=== PATIENT | female | born 1955 | race Caucasian/White ===

== ENCOUNTER 2017-08-23 07:30 | Inpatient (IN) ==
[2017-08-30] MEDS ORDERED: DEXTROSE 50% 25 GM/50 ML VIAL IV PRN ×2 (06:20→06:22)
[2017-08-30] MEDS ORDERED: GLUCAGON 1 MG VIAL IM PRN ×2 (06:20→06:22)
[2017-08-30] MEDS ORDERED: CEFUROXIME INJ 1,500 MG in SODIUM CHLORIDE 0.9% 100 ML IV ONE (06:20)
[2017-08-30] MEDS ORDERED: ZOLPIDEM 5 MG TABLET PO PRN (06:28)
[2017-08-30] MEDS ORDERED: oxyCODONE/ACETAMINOPHEN 5-325 MG TABLET PO PRN (06:29)
[2017-08-30] MEDS ORDERED: SODIUM CHLORIDE 0.9% 1,000 ML IV SCH ×2 (06:30)
[2017-08-30] MEDS ORDERED: CHLORHEXIDINE 4% SOLN 118 ML BOTTLE TOP SCH (09:00)
[2017-08-30] MEDS ORDERED: CHLORHEXIDINE 0.12% ORAL RINSE 60 ML BOTTLE SWISH/SPIT SCH (09:00)
[2017-08-30 11:08] LABS: Basophils % 0.7 % (0.0-0.8); Eosinophils # 0.2 10*3/uL (0.0-0.87); Eosinophils % 2.5 % (0.00-10.9); Hematocrit 35.9 VOL% (35.7-47.0); Hemoglobin 11.9 GM/DL (12.0-16.0); Immature Granulocytes % 0.3 %; Immature Granulocytes Absolute 0.02 #; Lymphocytes # 1.5 10*3/uL (1.4-4.0); Lymphocytes % 25.3 % (21.3-54.2); Mean Corpuscular HGB Conc 33.1 GM/DL (32-36); Mean Corpuscular Hemoglobin 29 PG (27-34); Mean Corpuscular Volume 87.3 FL (87-102); Mean Platelet Volume 10.1 FL (9.6-12.0); Monocytes # 0.6 10*3/uL (0.11-0.8); Monocytes % 9.2 % (1.7-12.7); Neutrophils # 3.8 10*3/uL (1.4-7.4); Platelet Count 198 T/CUMM (130-400); Red Blood Count 4.11 MC/CUMM (3.8-5.5); Red Cell Distribution Width 14.5 % (9.3-17.3); White Blood Count 6.1 T/CUMM (4-12)
[2017-08-30 11:30] LABS: Alanine Aminotransferase 23 U/L (13-56); Alkaline Phosphatase 49 U/L (45-117); Aspartate Amino Transferase 29 U/L (0-37); Bilirubin,Total < 0.39 MG/DL (0.2-1.0); Blood Urea Nitrogen 40 MG/DL (7-18); Calcium 9.2 MG/DL (8.5-10.1); Glucose 132 MG/DL (74-106); Osmolality,Calculated 288.5 MOS/KG (273-304); Sodium 139 MMOL/L (136-145); Total Protein 7.3 G/DL (6.4-8.3)
[2017-08-30] MEDS: LOSARTAN 50 MG TABLET PO SCH (12:38)
[2017-08-30] MEDS: METOPROLOL TARTRATE 50 MG TABLET PO SCH (12:38)
[2017-08-30] MEDS: CHLORHEXIDINE 0.12% ORAL RINSE 60 ML BOTTLE SWISH/SPIT SCH ×2 (12:38→22:06)
[2017-08-30] MEDS: CHLORHEXIDINE 4% SOLN 118 ML BOTTLE TOP SCH ×3 (12:38→21:04)
[2017-08-30] MEDS: LEVOTHYROXINE 150 MCG TABLET PO SCH (12:38)
[2017-08-31] MEDS ORDERED: VANCOMYCIN 1,000 MG VIAL ONE (05:26)
[2017-08-31] MEDS ORDERED: CEFUROXIME INJ 1,500 MG in SYRINGE 1 EACH IV ONE (06:00)
[2017-08-31] MEDS: LEVOTHYROXINE 150 MCG TABLET PO SCH (06:03)
[2017-08-31] MEDS: CHLORHEXIDINE 4% SOLN 118 ML BOTTLE TOP SCH (06:05)
[2017-08-31] MEDS ORDERED: FAMOTIDINE 20 MG TABLET PO ONE (06:30)
[2017-08-31] MEDS ORDERED: DIAZEPAM 5 MG TABLET PO ONE (06:30)
[2017-08-31 07:48] LABS: ABG Base Excess 4.3 MMOL/L (-2.5-2.5); ABG HCO3 28.3 MMOL/L (20-26); ABG PCO2 38.4 MM HG (35-48); ABG PH 7.472 (7.35-7.45); ABG TCO2 25.1 MMOL/L (23-27); Glucose Heart Surgery 157 MG/DL (74-106); Hematocrit Heart Surgery 33.4 PERCENT (37-47); Hemoglobin Heart Surgery 10.8 G/DL (12.0-16.0); Ionized Calcium Arterial 1.14 MMOL/L (1.21-1.46); PCO2 Patient Temp Arterial 38.4 MMHG; PH Patient Temp Arterial 7.472; Patient Temperature 37 CELCIUS; Potassium Heart/CVR 2.6 MMOL/L (3.5-5.1); Sodium Heart/CVR 143 MMOL/L (135-145)
[2017-08-31 08:27] LABS: Apearance,Urine CLEAR (Clear); Bilirubin,Urine Negative (Negative); Blood, Urine Negative (Negative); Glucose,Urine (UA) Negative (Negative); Hyaline Casts,Urine 4 /LPF (0-3); Ketones,Urine Negative (Negative); Nitrite,Urine Negative (Negative); Protein,Urine Negative; RBC,Urine <1 /HPF (0-4); Squamous Epithelial Cell,Urine Occasional /HPF (0-10); Urine Color Yellow (Yellow); Urine Specific Gravity 1.015 (1.001-1.035); Urine Urobilinogen < 2.0 EU/DL (0.2-1.0); WBC,Urine <1 /HPF (0-6)
[2017-08-31 09:17] LABS: Hemoglobin Heart Surgery 7.5 G/DL (12.0-16.0); PCO2 Patient Temp Venous 40.3 MM HG; PH Patient Temp Venous 7.466; PO2 Patient Temp Venous 41.7 MM HG; VBG Base Excess 4.3 MEQ/L (0-4); VBG HCO3 28.4 MEQ/L (24-28); VBG Oxygen Saturation 73.7 %; VBG PCO2 40.3 MMHG (41-51); VBG PH 7.466; VBG PO2 41.7 MMHG (17-40)
[2017-08-31] MEDS ORDERED: PHENYLEPHRINE DRIP 40 MG/250 ML PREMIX IV ONE (09:17)
[2017-08-31] MEDS ORDERED: NITROPRUSSIDE 50 MG/2 ML VIAL ONE (09:17)
[2017-08-31] MEDS ORDERED: CALCIUM CHLORIDE 1,000 MG/10 ML SYRINGE IV ONE (09:18)
[2017-08-31] MEDS ORDERED: POTASSIUM CHLORIDE RIDER 100 ML IV ONE (09:18)
[2017-08-31] MEDS ORDERED: ALBUMIN 5% 12.5 GM/250 ML VIAL IV ONE (09:19)
[2017-08-31] MEDS ORDERED: MIDAZOLAM 10 MG/2 ML VIAL ONE (09:30)
[2017-08-31] MEDS ORDERED: SODIUM CHLORIDE 0.9% 2,000 ML IV ONE (09:30)
[2017-08-31] MEDS ORDERED: ETOMIDATE 40 MG/20 ML VIAL IV ONE (09:30)
[2017-08-31] MEDS ORDERED: SODIUM CHLORIDE 0.9% 500 ML IV ONE (09:30)
[2017-08-31] MEDS ORDERED: LACTATED RINGERS 1,000 ML IV ONE (09:30)
[2017-08-31] MEDS ORDERED: HEPARIN/NACL 0.9% 2 UNITS/ML 500 ML IV ONE (09:32)
[2017-08-31] MEDS ORDERED: CALCIUM CHLORIDE 1,000 MG/10 ML VIAL IV ONE (09:32)
[2017-08-31] MEDS ORDERED: PHENYLEPHRINE 10 MG/1 ML VIAL IV ONE ×3 (09:33→11:38)
[2017-08-31] MEDS ORDERED: SUFentanil 250 MCG/5 ML AMP ONE (09:33)
[2017-08-31] MEDS ORDERED: MINERAL OIL/PETROLATUM OPH OINT 3.5 GM TUBE ONE (09:33)
[2017-08-31] MEDS ORDERED: TRANEXAMIC ACID 1,000 MG/10 ML VIAL IV ONE (09:33)
[2017-08-31] MEDS ORDERED: ePHEDrine 50 MG/ML AMP ONE (09:33)
[2017-08-31] MEDS ORDERED: NITROGLYCERIN DRIP 50 MG/250 ML BOTTLE IV ONE (09:34)
[2017-08-31] MEDS ORDERED: ROCURONIUM 100 MG/10 ML VIAL IV ONE (09:34)
[2017-08-31 09:39] LABS: Hematocrit Heart Surgery 23.3 PERCENT (37-47); Hemoglobin Heart Surgery 7.5 G/DL (12.0-16.0); PCO2 Patient Temp Venous 36.9 MM HG; PH Patient Temp Venous 7.49; PO2 Patient Temp Venous 33.4 MM HG; Potassium Heart/CVR 2.8 MMOL/L (3.5-5.1); VBG Base Excess 4.8 MEQ/L (0-4); VBG HCO3 28.5 MEQ/L (24-28); VBG Oxygen Saturation 75.9 %; VBG PCO2 42.7 MMHG (41-51); VBG PH 7.445; VBG PO2 41.1 MMHG (17-40)
[2017-08-31 10:12] LABS: Hemoglobin Heart Surgery 8.4 G/DL (12.0-16.0); PCO2 Patient Temp Venous 36.2 MM HG; PH Patient Temp Venous 7.508; PO2 Patient Temp Venous 37.7 MM HG; Potassium Heart/CVR 2.8 MMOL/L (3.5-5.1); VBG Base Excess 4.8 MEQ/L (0-4); VBG HCO3 28.1 MEQ/L (24-28); VBG PCO2 36.2 MMHG (41-51); VBG PH 7.508; VBG PO2 37.7 MMHG (17-40)
[2017-08-31] MEDS ORDERED: HEPARIN 10,000 UNIT/10 ML VIAL ONE (10:36)
[2017-08-31] MEDS ORDERED: methylPREDNISolone SOD SUC 1,000 MG/8 ML VIAL ONE (10:36)
[2017-08-31] MEDS ORDERED: PROTAMINE SULFATE 250 MG/25 ML VIAL IV ONE (10:36)
[2017-08-31] MEDS ORDERED: DEXTROSE 5% KCL 20 MEQ 20 MEQ/1,000 ML BAG IV ONE (10:36)
[2017-08-31] MEDS ORDERED: ALBUMIN 25% 25 GM/100 ML VIAL IV ONE (10:36)
[2017-08-31] MEDS ORDERED: SODIUM BICARBONATE 50 MEQ/50 ML SYRINGE IV ONE (10:36)
[2017-08-31] MEDS ORDERED: MAGNESIUM SULFATE 1 GM/2 ML VIAL ONE (10:36)
[2017-08-31] MEDS ORDERED: FUROSEMIDE 20 MG/2 ML VIAL ONE (10:37)
[2017-08-31] MEDS ORDERED: POTASSIUM CHLORIDE 20 MEQ/10 ML VIAL ONE (10:37)
[2017-08-31] MEDS ORDERED: MANNITOL 12.5 GM/50 ML VIAL IV ONE (10:37)
[2017-08-31] MEDS ORDERED: PROTAMINE SULFATE 50 MG/5 ML VIAL IV ONE ×3 (10:37→12:45)
[2017-08-31 10:47] LABS: ABG Base Excess 2.2 MMOL/L (-2.5-2.5); ABG HCO3 26.4 MMOL/L (20-26); ABG Oxygen Saturation 99.1 % (95-100); ABG PCO2 42.1 MM HG (35-48); ABG PH 7.414 (7.35-7.45); Glucose Heart Surgery 246 MG/DL (74-106); Hematocrit Heart Surgery 26.1 PERCENT (37-47); Hemoglobin Heart Surgery 8.4 G/DL (12.0-16.0); Ionized Calcium Arterial 1.32 MMOL/L (1.21-1.46); PCO2 Patient Temp Arterial 42.1 MMHG; PH Patient Temp Arterial 7.414; Patient Temperature 37 CELCIUS; Potassium Heart/CVR 3.1 MMOL/L (3.5-5.1); Sodium Heart/CVR 141 MMOL/L (135-145)
[2017-08-31] MEDS ORDERED: MIDAZOLAM 2 MG/2 ML VIAL IV PRN (11:37)
[2017-08-31] MEDS ORDERED: INSULIN REGULAR 100 UNIT/ML IV ONE (11:37)
[2017-08-31] MEDS ORDERED: ONDANSETRON 4 MG/2 ML VIAL IV PRN (11:37)
[2017-08-31] MEDS ORDERED: LACTATED RINGERS 250 ML IV PRN (11:37)
[2017-08-31] MEDS ORDERED: MORPHINE 10 MG/1 ML VIAL IV PRN (11:37)
[2017-08-31] MEDS ORDERED: POTASSIUM CHLORIDE RIDER 10 MEQ in PREMIX 1 EACH IV PRN (11:37)
[2017-08-31] MEDS ORDERED: DEXTROSE 50% 25 GM/50 ML VIAL IV PRN ×2 (11:37)
[2017-08-31] MEDS ORDERED: INSULIN REGULAR 100 UNIT/ML IV PRN (11:37)
[2017-08-31] MEDS ORDERED: CALCIUM CHLORIDE 1,000 MG/10 ML SYRINGE IV PRN (11:37)
[2017-08-31] MEDS ORDERED: ACETAMINOPHEN 650 MG SUPP RECTAL PRN (11:37)
[2017-08-31] MEDS ORDERED: PHENYLEPHRINE DRIP 40 MG/250 ML PREMIX IV PRN (11:37)
[2017-08-31] MEDS ORDERED: DEXAMETHASONE 10 MG/1 ML VIAL ONE (11:37)
[2017-08-31] MEDS ORDERED: MIDAZOLAM 10 MG/2 ML VIAL IV PRN (11:37)
[2017-08-31] MEDS ORDERED: VECURONIUM 10 MG VIAL IV PRN ×2 (11:37)
[2017-08-31] MEDS ORDERED: MAGNESIUM SULF RIDER 4 GM in PREMIX 1 EACH IV PRN (11:37)
[2017-08-31] MEDS ORDERED: MAGNESIUM SULF RIDER 2 GM in PREMIX 1 EACH IV PRN (11:37)
[2017-08-31] MEDS ORDERED: NITROPRUSSIDE 100 MG in DEXTROSE 5% 250 ML IV PRN (11:37)
[2017-08-31] MEDS ORDERED: ONDANSETRON 4 MG/2 ML VIAL ONE (11:37)
[2017-08-31] MEDS ORDERED: ESMOLOL 100 MG/10 ML VIAL IV ONE (11:38)
[2017-08-31] MEDS ORDERED: SEVOFLURANE 1 UNIT/15 MINUTE INH ONE (11:41)
[2017-08-31 11:44] LABS: ABG Base Excess 0.8 MMOL/L (-2.5-2.5); ABG HCO3 25.1 MMOL/L (20-26); ABG Oxygen Saturation 99.7 % (95-100); ABG PCO2 46.1 MM HG (35-48); ABG PH 7.366 (7.35-7.45); ABG TCO2 24.5 MMOL/L (23-27); Glucose Heart Surgery 194 MG/DL (74-106); Hematocrit Heart Surgery 26.8 PERCENT (37-47); Hemoglobin Heart Surgery 8.6 G/DL (12.0-16.0)
[2017-08-31 11:44] LABS: Basophils % 0.2 % (0.0-0.8); Eosinophils % 0.5 % (0.00-10.9); Hematocrit 26.3 VOL% (35.7-47.0); Immature Granulocytes % 0.5 %; Immature Granulocytes Absolute 0.03 #; Lymphocytes # 0.7 10*3/uL (1.4-4.0); Lymphocytes % 10.8 % (21.3-54.2); Mean Corpuscular HGB Conc 32.3 GM/DL (32-36); Mean Corpuscular Hemoglobin 28 PG (27-34); Mean Corpuscular Volume 87.4 FL (87-102); Mean Platelet Volume 10.5 FL (9.6-12.0); Monocytes # 0.2 10*3/uL (0.11-0.8); Monocytes % 3.2 % (1.7-12.7); Neutrophils # 5.6 10*3/uL (1.4-7.4); Neutrophils % 84.8 % (38.7-73.9); Red Cell Distribution Width 14.5 % (9.3-17.3); White Blood Count 6.6 T/CUMM (4-12)
[2017-08-31 11:51] LABS: Hemoglobin 8.5 GM/DL (12.0-16.0); Platelet Count 171 T/CUMM (130-400); Red Blood Count 3.01 MC/CUMM (3.8-5.5)
[2017-08-31 11:56] LABS: INR 1.2; PT Patient Result 12.2 SECS
[2017-08-31] MEDS ORDERED: SODIUM CHLORIDE 0.45% 1,000 ML IV SCH ×2 (12:00)
[2017-08-31] MEDS: LACTATED RINGERS 1,000 ML IV PRN ×2 (12:00→13:02)
[2017-08-31] MEDS ORDERED: KETOROLAC 30 MG/1 ML VIAL IV SCH (12:00)
[2017-08-31 12:21] LABS: Albumin 3.3 G/DL (3.4-5.0); Bilirubin,Total 0.5 MG/DL (0.2-1.0); Calcium 9.6 MG/DL (8.5-10.1); Osmolality,Calculated 293.3 MOS/KG (273-304); Potassium 3.8 MMOL/L (3.5-5.1); Total Protein 5.5 G/DL (6.4-8.3)
[2017-08-31 12:36] LABS: CKMB % 3.6 %
[2017-08-31 12:40] LABS: Troponin I Only 1.59 NG/ML (0.00-0.045)
[2017-08-31] MEDS: ALBUMIN 5% 12.5 GM in PREMIX 1 EACH IV PRN ×2 (12:56→15:15)
[2017-08-31] MEDS: POTASSIUM CHLORIDE RIDER 20 MEQ in PREMIX 1 EACH IV PRN ×4 (14:17→22:37)
[2017-08-31 14:25] LABS: ABG Base Excess 0.4 MMOL/L (-2.5-2.5); ABG HCO3 24.8 MMOL/L (20-26); ABG Oxygen Saturation 97.9 % (95-100); ABG PCO2 54.2 MM HG (35-48); ABG PH 7.313 (7.35-7.45); Glucose Heart Surgery 206 MG/DL (74-106); Hematocrit Heart Surgery 33.1 PERCENT (37-47); Hemoglobin Heart Surgery 10.7 G/DL (12.0-16.0); Potassium Heart/CVR 3.2 MMOL/L (3.5-5.1)
[2017-08-31] MEDS: INSULIN REGULAR DRIP 100 ML IV SCH (14:41)
[2017-08-31] MEDS ORDERED: PROPOFOL 200 MG/20 ML VIAL IV ONE (14:52)
[2017-08-31] MEDS ORDERED: PROPOFOL 1,000 MG/100 ML BOTTLE IV ONE (15:20)
[2017-08-31] MEDS ORDERED: PROPOFOL 1,000 MG/100 ML BOTTLE IV SCH (15:30)
[2017-08-31 16:27] LABS: ABG Base Excess 0.6 MMOL/L (-2.5-2.5); ABG Oxygen Saturation 99.2 % (95-100); ABG PCO2 44.4 MM HG (35-48); ABG PH 7.375 (7.35-7.45); ABG TCO2 23.7 MMOL/L (23-27); Glucose Heart Surgery 211 MG/DL (74-106); Hematocrit Heart Surgery 31.2 PERCENT (37-47); Hemoglobin Heart Surgery 10.1 G/DL (12.0-16.0); Potassium Heart/CVR 3.5 MMOL/L (3.5-5.1)
[2017-08-31 16:53] LABS: CKMB % 3.2 %
[2017-08-31 16:55] LABS: Troponin I Only 1.99 NG/ML (0.00-0.045)
[2017-08-31] MEDS: LOSARTAN 50 MG TABLET PO SCH (17:42)
[2017-08-31] MEDS: CHLORHEXIDINE 0.12% ORAL RINSE 60 ML BOTTLE SWISH/SPIT SCH (17:43)
[2017-08-31] MEDS: METOPROLOL TARTRATE 50 MG TABLET PO SCH (17:43)
[2017-08-31 19:28] LABS: ABG Base Excess 0.4 MMOL/L (-2.5-2.5); ABG HCO3 24.8 MMOL/L (20-26); ABG PCO2 43.4 MM HG (35-48); ABG TCO2 23.4 MMOL/L (23-27); Glucose Heart Surgery 199 MG/DL (74-106); Hematocrit Heart Surgery 30.2 PERCENT (37-47); Hemoglobin Heart Surgery 9.8 G/DL (12.0-16.0); Potassium Heart/CVR 3.8 MMOL/L (3.5-5.1)
[2017-08-31] MEDS: ALPRAZolam 0.5 MG TABLET PO SCH (19:44)
[2017-08-31] MEDS: CEFUROXIME INJ 1,500 MG in SYRINGE 1 EACH IV SCH (19:44)
[2017-08-31 19:59] LABS: ABG Base Excess 0.4 MMOL/L (-2.5-2.5); ABG HCO3 26.1 MMOL/L (20-26); ABG Oxygen Saturation 97.5 % (95-100); ABG PCO2 47.2 MM HG (35-48); ABG PH 7.361 (7.35-7.45); ABG PO2 120.4 MM HG (80-95); ABG TCO2 27.6 MMOL/L (23-27); Glucose Heart Surgery 188 MG/DL (74-106); Hemoglobin Heart Surgery 10.2 G/DL (12.0-16.0); Potassium Heart/CVR 3.9 MMOL/L (3.5-5.1)
[2017-08-31 20:57] LABS: ABG HCO3 24.4 MMOL/L (20-26); ABG Oxygen Saturation 97.8 % (95-100); ABG PH 7.325 (7.35-7.45); ABG TCO2 24.3 MMOL/L (23-27); Glucose Heart Surgery 195 MG/DL (74-106)
[2017-08-31] MEDS ORDERED: CHLORHEXIDINE 0.12% ORAL RINSE 60 ML BOTTLE SWISH/SPIT SCH (21:00)
[2017-08-31] MEDS: MORPHINE 2 MG/1 ML SYRINGE IV PRN (21:28)
[2017-08-31 21:38] LABS: ABG Base Excess 0.1 MMOL/L (-2.5-2.5); ABG HCO3 24.4 MMOL/L (20-26); ABG Oxygen Saturation 93.7 % (95-100); ABG PCO2 55.5 MM HG (35-48); ABG PO2 74.5 MM HG (80-95); ABG TCO2 25.2 MMOL/L (23-27); Glucose Heart Surgery 188 MG/DL (74-106); Potassium Heart/CVR 3.8 MMOL/L (3.5-5.1)
[2017-08-31 22:30] LABS: ABG Base Excess 1.1 MMOL/L (-2.5-2.5); ABG HCO3 27.7 MMOL/L (20-26); ABG Oxygen Saturation 92.4 % (95-100); ABG PCO2 53.6 MM HG (35-48); ABG PH 7.331 (7.35-7.45); ABG PO2 73.6 MM HG (80-95); ABG TCO2 29.3 MMOL/L (23-27); Glucose Heart Surgery 177 MG/DL (74-106); Hemoglobin Heart Surgery 10.3 G/DL (12.0-16.0); Potassium Heart/CVR 3.5 MMOL/L (3.5-5.1)
[2017-09-01] MEDS: ALPRAZolam 0.5 MG TABLET PO SCH (01:09)
[2017-09-01] MEDS: MORPHINE 2 MG/1 ML SYRINGE IV PRN ×4 (01:10→13:34)
[2017-09-01] MEDS ORDERED: FUROSEMIDE 40 MG/4 ML VIAL IV ONE (02:30)
[2017-09-01 03:10] LABS: ABG Base Excess 2.1 MMOL/L (-2.5-2.5); ABG HCO3 26.2 MMOL/L (20-26); ABG PCO2 52.7 MM HG (35-48); ABG PH 7.343 (7.35-7.45); ABG PO2 75.4 MM HG (80-95); ABG TCO2 26.3 MMOL/L (23-27); Glucose Heart Surgery 154 MG/DL (74-106); Hematocrit Heart Surgery 29.6 PERCENT (37-47); Hemoglobin Heart Surgery 9.6 G/DL (12.0-16.0); Potassium Heart/CVR 3.5 MMOL/L (3.5-5.1)
[2017-09-01 03:19] LABS: Basophils % 0.1 % (0.0-0.8); Hematocrit 28.8 VOL% (35.7-47.0); Hemoglobin 9.5 GM/DL (12.0-16.0); Immature Granulocytes % 0.5 %; Immature Granulocytes Absolute 0.05 #; Lymphocytes # 0.4 10*3/uL (1.4-4.0); Lymphocytes % 4.4 % (21.3-54.2); Mean Corpuscular Hemoglobin 29 PG (27-34); Mean Corpuscular Volume 88.1 FL (87-102); Mean Platelet Volume 10.1 FL (9.6-12.0); Monocytes # 0.3 10*3/uL (0.11-0.8); Monocytes % 3.1 % (1.7-12.7); Neutrophils # 8.6 10*3/uL (1.4-7.4); Neutrophils % 91.9 % (38.7-73.9); Platelet Count 132 T/CUMM (130-400); Red Blood Count 3.27 MC/CUMM (3.8-5.5); Red Cell Distribution Width 14.6 % (9.3-17.3); White Blood Count 9.4 T/CUMM (4-12)
[2017-09-01] MEDS: POTASSIUM CHLORIDE RIDER 20 MEQ in PREMIX 1 EACH IV PRN ×2 (03:34→04:20)
[2017-09-01 03:46] LABS: Alanine Aminotransferase 21 U/L (13-56); Albumin 3.6 G/DL (3.4-5.0); Alkaline Phosphatase 29 U/L (45-117); Aspartate Amino Transferase 43 U/L (0-37); Bilirubin,Total < 0.39 MG/DL (0.2-1.0); Blood Urea Nitrogen 29 MG/DL (7-18); Glucose 156 MG/DL (74-106); Potassium 3.7 MMOL/L (3.5-5.1); Sodium 143 MMOL/L (136-145); Total Protein 6.1 G/DL (6.4-8.3)
[2017-09-01 03:47] LABS: CKMB % 2.7 %
[2017-09-01 03:58] LABS: Troponin I Only 1.61 NG/ML (0.00-0.045)
[2017-09-01 04:03] LABS: Lymphocytes 3 % (20-55); Segmented Neutrophils 95 % (50-85); Total Cells Counted 100
[2017-09-01 04:05] LABS: Platelet Estimate Adequate
[2017-09-01 04:06] LABS: Ovalocytes Slight
[2017-09-01] MEDS: INSULIN REGULAR DRIP 100 ML IV SCH (04:40)
[2017-09-01] MEDS: CEFUROXIME INJ 1,500 MG in SYRINGE 1 EACH IV SCH (07:30)
[2017-09-01] MEDS ORDERED: MAGNESIUM SULF RIDER 2 GM in PREMIX 1 EACH IV PRN (07:41)
[2017-09-01] MEDS ORDERED: POTASSIUM CHLORIDE 20 MEQ TABLET PO PRN (07:41)
[2017-09-01] MEDS ORDERED: MAGNESIUM HYDROXIDE SUSP 30 ML UDCUP PO PRN (07:41)
[2017-09-01] MEDS ORDERED: GLUCAGON 1 MG VIAL IM PRN ×2 (07:41)
[2017-09-01] MEDS ORDERED: DEXTROSE 50% 25 GM/50 ML VIAL IV PRN ×2 (07:41)
[2017-09-01] MEDS ORDERED: ALUMINUM/MAGNES/SIMETH MAX STR 30 ML UDCUP PO PRN (07:41)
[2017-09-01] MEDS ORDERED: MAGNESIUM SULF RIDER 4 GM in PREMIX 1 EACH IV PRN (07:41)
[2017-09-01] MEDS ORDERED: ACETAMINOPHEN 325 MG TABLET PO PRN (07:41)
[2017-09-01] MEDS ORDERED: ALPRAZolam 0.5 MG TABLET PO PRN (07:41)
[2017-09-01 08:14] LABS: ABG Base Excess 3.6 MMOL/L (-2.5-2.5); ABG HCO3 27.6 MMOL/L (20-26); ABG Oxygen Saturation 97.1 % (95-100); ABG PCO2 59.3 MM HG (35-48); ABG PH 7.323 (7.35-7.45); ABG PO2 90.6 MM HG (80-95); ABG TCO2 28.6 MMOL/L (23-27); Glucose Heart Surgery 168 MG/DL (74-106); Potassium Heart/CVR 3.7 MMOL/L (3.5-5.1)
[2017-09-01] MEDS: INSULIN REGULAR 100 UNIT/ML SUBCUT SCH ×4 (08:15→22:32)
[2017-09-01] MEDS ORDERED: PANTOPRAZOLE 40 MG TABLET PO SCH (09:00)
[2017-09-01] MEDS ORDERED: ASPIRIN EC 81 MG TABLET PO SCH (09:00)
[2017-09-01] MEDS ORDERED: UBIDECARENONE PO SCH (09:00)
[2017-09-01] MEDS ORDERED: VITAMIN E MIXED PO SCH (09:00)
[2017-09-01] MEDS: SODIUM CHLOR 0.45% KCL 20 MEQ 20 MEQ/1,000 ML BAG IV SCH (09:10)
[2017-09-01] MEDS: FERROUS SULFATE 325 MG TABLET PO SCH (09:20)
[2017-09-01] MEDS: CHLORHEXIDINE 0.12% ORAL RINSE 60 ML BOTTLE SWISH/SPIT SCH ×2 (09:20→21:32)
[2017-09-01] MEDS: METOPROLOL SUCCINATE XL 50 MG TABLET PO SCH ×2 (09:20→21:31)
[2017-09-01] MEDS: metOLazone 2.5 MG TABLET PO SCH (09:20)
[2017-09-01] MEDS: BUMETANIDE 1 MG TABLET PO SCH (09:20)
[2017-09-01] MEDS: LOSARTAN 50 MG TABLET PO SCH (09:20)
[2017-09-01] MEDS: ASPIRIN EC 325 MG TABLET PO SCH (09:20)
[2017-09-01] MEDS: COLCHICINE 0.6 MG TABLET PO SCH (09:20)
[2017-09-01] MEDS: PANTOPRAZOLE 40 MG TABLET PO SCH (09:20)
[2017-09-01] MEDS: CETIRIZINE 10 MG TABLET PO SCH (09:20)
[2017-09-01] MEDS: DOCUSATE SODIUM 100 MG CAPSULE PO SCH (09:20)
[2017-09-01] MEDS: POTASSIUM CHLORIDE 20 MEQ TABLET PO SCH ×2 (09:20→21:31)
[2017-09-01] MEDS: LEVOTHYROXINE 150 MCG TABLET PO SCH (09:20)
[2017-09-01] MEDS: oxyCODONE/ACETAMINOPHEN 5-325 MG TABLET PO PRN (16:59)
[2017-09-02] MEDS: INSULIN REGULAR 100 UNIT/ML SUBCUT SCH ×6 (04:06→20:30)
[2017-09-02] MEDS: oxyCODONE/ACETAMINOPHEN 5-325 MG TABLET PO PRN (05:37)
[2017-09-02] MEDS ORDERED: FUROSEMIDE 40 MG/4 ML VIAL IV ONE (06:00)
[2017-09-02] MEDS: MORPHINE 2 MG/1 ML SYRINGE IV PRN (06:18)
[2017-09-02] MEDS: LEVOTHYROXINE 150 MCG TABLET PO SCH (06:18)
[2017-09-02 08:24] LABS: Basophils % 0.1 % (0.0-0.8); Hematocrit 27.9 VOL% (35.7-47.0); Hemoglobin 8.8 GM/DL (12.0-16.0); Immature Granulocytes % 0.6 %; Immature Granulocytes Absolute 0.09 #; Lymphocytes # 1.8 10*3/uL (1.4-4.0); Lymphocytes % 11.9 % (21.3-54.2); Mean Corpuscular HGB Conc 31.5 GM/DL (32-36); Mean Corpuscular Hemoglobin 29 PG (27-34); Mean Corpuscular Volume 90.6 FL (87-102); Mean Platelet Volume 10.5 FL (9.6-12.0); Monocytes # 1.2 10*3/uL (0.11-0.8); Monocytes % 8.3 % (1.7-12.7); Neutrophils # 11.9 10*3/uL (1.4-7.4); Neutrophils % 79.1 % (38.7-73.9); Platelet Count 173 T/CUMM (130-400); Red Blood Count 3.08 MC/CUMM (3.8-5.5); Red Cell Distribution Width 15.4 % (9.3-17.3)
[2017-09-02 08:37] LABS: Alanine Aminotransferase 23 U/L (13-56); Albumin 3.5 G/DL (3.4-5.0); Alkaline Phosphatase 33 U/L (45-117); Aspartate Amino Transferase 40 U/L (0-37); Bilirubin,Direct < 0.100 MG/DL (0.0-0.20); Bilirubin,Indirect 0.3 MG/DL (0.0-1.0); Bilirubin,Total < 0.39 MG/DL (0.2-1.0); Blood Urea Nitrogen 38 MG/DL (7-18); Calcium 8.8 MG/DL (8.5-10.1); Glucose 130 MG/DL (74-106); Osmolality,Calculated 287.5 MOS/KG (273-304); Potassium 4.2 MMOL/L (3.5-5.1); Sodium 139 MMOL/L (136-145); Total Protein 6.2 G/DL (6.4-8.3)
[2017-09-02] MEDS: metOLazone 2.5 MG TABLET PO SCH (09:47)
[2017-09-02] MEDS: BUMETANIDE 1 MG TABLET PO SCH (09:47)
[2017-09-02] MEDS: COLCHICINE 0.6 MG TABLET PO SCH (09:47)
[2017-09-02] MEDS: FERROUS SULFATE 325 MG TABLET PO SCH (09:47)
[2017-09-02] MEDS: CETIRIZINE 10 MG TABLET PO SCH (09:48)
[2017-09-02] MEDS: ASPIRIN EC 325 MG TABLET PO SCH (09:48)
[2017-09-02] MEDS: DOCUSATE SODIUM 100 MG CAPSULE PO SCH (09:48)
[2017-09-02] MEDS: POTASSIUM CHLORIDE 20 MEQ TABLET PO SCH ×2 (09:48→21:17)
[2017-09-02] MEDS: PANTOPRAZOLE 40 MG TABLET PO SCH (09:48)
[2017-09-02] MEDS: CHLORHEXIDINE 0.12% ORAL RINSE 60 ML BOTTLE SWISH/SPIT SCH ×2 (09:49→21:17)
[2017-09-02] MEDS: METOPROLOL SUCCINATE XL 50 MG TABLET PO SCH ×2 (09:57→21:17)
[2017-09-02] MEDS: LOSARTAN 50 MG TABLET PO SCH (09:57)
[2017-09-02] MEDS: SODIUM CHLOR 0.45% KCL 20 MEQ 20 MEQ/1,000 ML BAG IV SCH (09:57)
[2017-09-02] MEDS: ONDANSETRON 4 MG/2 ML VIAL IV PRN ×3 (11:48→21:29)
[2017-09-02] MEDS: ZALEPLON 5 MG CAPSULE PO PRN (23:35)
[2017-09-03 05:22] LABS: Basophils % 0.1 % (0.0-0.8); Eosinophils % 0.5 % (0.00-10.9); Hematocrit 25.8 VOL% (35.7-47.0); Hemoglobin 8.5 GM/DL (12.0-16.0); Immature Granulocytes % 0.7 %; Immature Granulocytes Absolute 0.06 #; Lymphocytes # 1.1 10*3/uL (1.4-4.0); Mean Corpuscular HGB Conc 32.9 GM/DL (32-36); Mean Corpuscular Hemoglobin 29 PG (27-34); Mean Corpuscular Volume 88.1 FL (87-102); Mean Platelet Volume 10.5 FL (9.6-12.0); Monocytes # 0.9 10*3/uL (0.11-0.8); Monocytes % 10.6 % (1.7-12.7); NRBC # 0.02 10*3/uL; Neutrophils # 6.1 10*3/uL (1.4-7.4); Neutrophils % 75.1 % (38.7-73.9); Platelet Count 156 T/CUMM (130-400); Red Blood Count 2.93 MC/CUMM (3.8-5.5); Red Cell Distribution Width 15.1 % (9.3-17.3); White Blood Count 8.2 T/CUMM (4-12)
[2017-09-03 05:49] LABS: Alanine Aminotransferase 22 U/L (13-56); Albumin 3.5 G/DL (3.4-5.0); Alkaline Phosphatase 38 U/L (45-117); Aspartate Amino Transferase 34 U/L (0-37); Bilirubin,Indirect 0.4 MG/DL (0.0-1.0); Blood Urea Nitrogen 37 MG/DL (7-18); Calcium 8.6 MG/DL (8.5-10.1); Glucose 151 MG/DL (74-106); Osmolality,Calculated 288.5 MOS/KG (273-304); Potassium 3.8 MMOL/L (3.5-5.1); Sodium 139 MMOL/L (136-145); Total Protein 6.1 G/DL (6.4-8.3)
[2017-09-03 05:52] LABS: Troponin I Only 0.755 NG/ML (0.00-0.045)
[2017-09-03] MEDS: LEVOTHYROXINE 150 MCG TABLET PO SCH (06:07)
[2017-09-03] MEDS: INSULIN REGULAR 100 UNIT/ML SUBCUT SCH ×3 (07:59→16:31)
[2017-09-03] MEDS: MORPHINE 2 MG/1 ML SYRINGE IV PRN (09:17)
[2017-09-03] MEDS: PANTOPRAZOLE 40 MG TABLET PO SCH (09:18)
[2017-09-03] MEDS: FERROUS SULFATE 325 MG TABLET PO SCH (09:18)
[2017-09-03] MEDS: CETIRIZINE 10 MG TABLET PO SCH (09:18)
[2017-09-03] MEDS: METOPROLOL SUCCINATE XL 50 MG TABLET PO SCH (09:18)
[2017-09-03] MEDS: LOSARTAN 50 MG TABLET PO SCH (09:19)
[2017-09-03] MEDS: BUMETANIDE 1 MG TABLET PO SCH (09:19)
[2017-09-03] MEDS: ASPIRIN EC 325 MG TABLET PO SCH (09:19)
[2017-09-03] MEDS: COLCHICINE 0.6 MG TABLET PO SCH (09:19)
[2017-09-03] MEDS: metOLazone 2.5 MG TABLET PO SCH (09:19)
[2017-09-03] MEDS: DOCUSATE SODIUM 100 MG CAPSULE PO SCH (09:19)
[2017-09-03] MEDS: POTASSIUM CHLORIDE 20 MEQ TABLET PO SCH ×2 (09:19→20:58)
[2017-09-03] MEDS: CHLORHEXIDINE 0.12% ORAL RINSE 60 ML BOTTLE SWISH/SPIT SCH ×2 (09:23→20:58)
[2017-09-03] MEDS: oxyCODONE/ACETAMINOPHEN 5-325 MG TABLET PO PRN (12:21)
[2017-09-04] MEDS: INSULIN REGULAR 100 UNIT/ML SUBCUT SCH ×5 (00:19→21:03)
[2017-09-04] MEDS: METOPROLOL SUCCINATE XL 50 MG TABLET PO SCH ×3 (00:19→21:04)
[2017-09-04] MEDS: LEVOTHYROXINE 150 MCG TABLET PO SCH (06:09)
[2017-09-04] MEDS: DOCUSATE SODIUM 100 MG CAPSULE PO SCH (08:54)
[2017-09-04] MEDS: PANTOPRAZOLE 40 MG TABLET PO SCH (08:54)
[2017-09-04] MEDS: ASPIRIN EC 325 MG TABLET PO SCH (08:54)
[2017-09-04] MEDS: BUMETANIDE 1 MG TABLET PO SCH (08:54)
[2017-09-04] MEDS: COLCHICINE 0.6 MG TABLET PO SCH (08:54)
[2017-09-04] MEDS: POTASSIUM CHLORIDE 20 MEQ TABLET PO SCH ×2 (08:55→21:04)
[2017-09-04] MEDS: CETIRIZINE 10 MG TABLET PO SCH (08:55)
[2017-09-04] MEDS: FERROUS SULFATE 325 MG TABLET PO SCH (08:55)
[2017-09-04] MEDS: CHLORHEXIDINE 0.12% ORAL RINSE 60 ML BOTTLE SWISH/SPIT SCH ×2 (08:56→21:04)
[2017-09-04] MEDS: LOSARTAN 50 MG TABLET PO SCH (08:56)
[2017-09-04] MEDS: metOLazone 2.5 MG TABLET PO SCH (08:57)
[2017-09-04] MEDS: oxyCODONE/ACETAMINOPHEN 5-325 MG TABLET PO PRN (10:03)
[2017-09-05] MEDS: ZALEPLON 5 MG CAPSULE PO PRN (00:07)
[2017-09-05 06:08] LABS: Basophils % 0.3 % (0.0-0.8); Eosinophils # 0.2 10*3/uL (0.0-0.87); Eosinophils % 3.7 % (0.00-10.9); Hematocrit 25.7 VOL% (35.7-47.0); Hemoglobin 8.3 GM/DL (12.0-16.0); Immature Granulocytes % 1.2 %; Immature Granulocytes Absolute 0.07 #; Lymphocytes # 1.6 10*3/uL (1.4-4.0); Lymphocytes % 26.8 % (21.3-54.2); Mean Corpuscular HGB Conc 32.3 GM/DL (32-36); Mean Corpuscular Hemoglobin 29 PG (27-34); Mean Corpuscular Volume 89.9 FL (87-102); Mean Platelet Volume 10.4 FL (9.6-12.0); Monocytes # 0.5 10*3/uL (0.11-0.8); Monocytes % 8.6 % (1.7-12.7); NRBC # 0.02 10*3/uL; Neutrophils # 3.5 10*3/uL (1.4-7.4); Neutrophils % 59.4 % (38.7-73.9); Platelet Count 157 T/CUMM (130-400); Red Blood Count 2.86 MC/CUMM (3.8-5.5); Red Cell Distribution Width 14.9 % (9.3-17.3); White Blood Count 5.9 T/CUMM (4-12)
[2017-09-05] MEDS: LEVOTHYROXINE 150 MCG TABLET PO SCH (06:15)
[2017-09-05 06:28] LABS: Alanine Aminotransferase 20 U/L (13-56); Albumin 3.2 G/DL (3.4-5.0); Alkaline Phosphatase 41 U/L (45-117); Aspartate Amino Transferase 22 U/L (0-37); Bilirubin,Direct < 0.100 MG/DL (0.0-0.20); Bilirubin,Indirect 0.3 MG/DL (0.0-1.0); Blood Urea Nitrogen 38 MG/DL (7-18); Calcium 8.6 MG/DL (8.5-10.1); Glucose 120 MG/DL (74-106); Osmolality,Calculated 292.1 MOS/KG (273-304); Potassium 3.6 MMOL/L (3.5-5.1); Sodium 142 MMOL/L (136-145); Total Protein 5.9 G/DL (6.4-8.3)
[2017-09-05 06:30] LABS: Troponin I Only 0.311 NG/ML (0.00-0.045)
[2017-09-05] MEDS: INSULIN REGULAR 100 UNIT/ML SUBCUT SCH (08:25)
[2017-09-05 08:27] VITALS: BP 119/46
[2017-09-05] MEDS: ASPIRIN EC 325 MG TABLET PO SCH (09:32)
[2017-09-05] MEDS: POTASSIUM CHLORIDE 20 MEQ TABLET PO SCH (09:32)
[2017-09-05] MEDS: COLCHICINE 0.6 MG TABLET PO SCH (09:32)
[2017-09-05] MEDS: LOSARTAN 50 MG TABLET PO SCH (09:32)
[2017-09-05] MEDS: metOLazone 2.5 MG TABLET PO SCH (09:32)
[2017-09-05] MEDS: FERROUS SULFATE 325 MG TABLET PO SCH (09:32)
[2017-09-05] MEDS: CETIRIZINE 10 MG TABLET PO SCH (09:33)
[2017-09-05] MEDS: BUMETANIDE 1 MG TABLET PO SCH (09:33)
[2017-09-05] MEDS: CHLORHEXIDINE 0.12% ORAL RINSE 60 ML BOTTLE SWISH/SPIT SCH (09:33)
[2017-09-05] MEDS: DOCUSATE SODIUM 100 MG CAPSULE PO SCH (09:33)
[2017-09-05] MEDS: PANTOPRAZOLE 40 MG TABLET PO SCH (09:33)
[2017-09-05] MEDS: METOPROLOL SUCCINATE XL 50 MG TABLET PO SCH (09:33)
[2017-09-05] MEDS ORDERED: INFLUENZA VIRUS VACCINE 0.5 ML SYRINGE IM ONE (10:55)
[2017-09-05] MEDS ORDERED: PNEUMOCOCCAL VACCINE (13 VALENT) 0.5 ML SYRINGE IM ONE (10:56)
== END 2017-09-05 11:21 | disposition home health service (06) | DRG 220 ==
LOC: N.4E 08-30 09:56 → N.CVR 08-31 07:47 → N.ICU 09-01 09:47 → N.TELES 09-01 14:37